=== PATIENT | female | born 1955 | race Two or more races ===

== ENCOUNTER → 2020-06-17 | Outpatient (CLI) | payer OTHER ==
[~2020-06-17] MED LIST: CYCLOBENZAPRINE10 MG PO
== END ==
LOC: KOH-I 11:57
DX: M54.5 Low back pain (principal); M47.816 Spondylosis without myelopathy or radiculopathy, lumbar region
CPT/HCPCS: 72100

== ENCOUNTER 2020-08-07 15:46 | Emergency (ER) | payer OTHER ==
[2020-08-07] MEDS ORDERED: CYCLOBENZAPRINE10 MG PO (16:49)
== END 2020-08-07 17:03 | disposition home or self-care (01) ==
LOC: ER1 15:46
DX: G89.29 Other chronic pain (principal); M54.5 Low back pain; M54.2 Cervicalgia; Z88.0 Allergy status to penicillin; E11.9 Type 2 diabetes mellitus without complications; J44.9 Chronic obstructive pulmonary disease, unspecified; I10 Essential (primary) hypertension; I25.2 Old myocardial infarction; Z86.19 Personal history of other infectious and parasitic diseases
CPT/HCPCS: 96372; 99283; J2270; J2405

== ENCOUNTER → 2020-08-10 | Outpatient (CLI) | payer OTHER | LOC: KOH-I 15:07 | DX: M54.2 Cervicalgia (principal); M47.812 Spondylosis without myelopathy or radiculopathy, cervical region; M50.321 Other cervical disc degeneration at C4-C5 level; Z98.1 Arthrodesis status | CPT/HCPCS: 72040 ==